=== PATIENT | male | born 1930 | race Caucasian/White ===

== ENCOUNTER → 2019-06-19 | Outpatient (CLI) | payer MEDICARE ==
[~2019-06-19] MED LIST: CPR500T PO; METFORMIN; METOPROLOL; MTF500T PO; MTP50T PO; OXYC1CAP3 PO; PHEN200T27 PO; RT-ALBUTEROL SULF 2.5 MG/3 ML PRE-MIX VIAL INH ONE; RT-ALBUTEROL SULF 2.5 MG/3 ML PRE-MIX VIAL ONE
== END ==
LOC: RT 12:54
PROVIDERS: ATTEND Internal Medicine Critical Care Medicine
DX: R06.02 Shortness of breath (principal); R91.8 Other nonspecific abnormal finding of lung field; Z72.0 Tobacco use
CPT/HCPCS: 94060; 94726; 94729

== ENCOUNTER → 2019-06-20 | Outpatient (CLI) | payer MEDICARE ==
[~2019-06-20] MED LIST changes: -RT-ALBUTEROL SULF 2.5 MG/3 ML PRE-MIX VIAL INH ONE; -RT-ALBUTEROL SULF 2.5 MG/3 ML PRE-MIX VIAL ONE
--- NOTE | 2019-06-20 12:47 | Diagnostic Imaging Report ---
INDICATION: Right lung mass. TECHNIQUE: Serum blood glucose level at the time of injection is 128 mg/dL. Patient was administered 15.6 mCi F-18 FDG intravenously in the left forearm and PET imaging was performed from the top of the skull through mid thighs. Noncontrast CT was also performed for attenuation correction and anatomic correlation. All CT scans use one or more of the following dose optimizing techniques: automated exposure control, MA and/or KvP adjustment based on a patient size and exam type, or iterative reconstruction. COMPARISON: No prior imaging is available for comparison. FINDINGS: There is symmetric activity throughout the brain. Soft tissues of the neck are unremarkable apart from hypermetabolic node in the left supraclavicular region with SUV max of approximately 4.0. Lymph node measures approximately 10 mm. There is a hypermetabolic mass in the right hilum with SUV max of 8.3. This mass measures approximately 3.5 cm AP diameter. There is hypermetabolic gene mass in the subcarinal region with an SUV max of approximately 9.3. This gene mass measures 3.4 x 1.7 cm. The left hilum is unremarkable. No other mediastinal hypermetabolism is identified. Abdomen and pelvis demonstrate physiologic activity in the GI and tracts. IMPRESSION: Hypermetabolic right hilar mass, suggestive of primary lung neoplasm. There is a hypermetabolic subcarinal lymphadenopathy, consistent with metastatic disease. There is also a small hypermetabolic left supraclavicular lymph node, suspicious for a metastatic lesion. Dictated by: Dictated on workstation # [id number]
== END ==
LOC: RAD 08:28
PROVIDERS: ATTEND Internal Medicine Critical Care Medicine
DX: R91.8 Other nonspecific abnormal finding of lung field (principal); R06.02 Shortness of breath